=== PATIENT | female | born 1995 | race Caucasian/White ===

== ENCOUNTER 2017-04-14 17:45 | Emergency (ER) | payer MEDICAID ==
[~2017-04-14] VITALS: Ht 165.1 cm; Wt 115.6 kg
[2017-04-14 17:57] VITALS: BP 112/75
== END 2017-04-14 19:09 | disposition home or self-care (01) ==
LOC: ED 19:03
DX: L03.211 Cellulitis of face (principal); J02.8 Acute pharyngitis due to other specified organisms; B97.89 Other viral agents as the cause of diseases classified elsewhere
CPT/HCPCS: 99283

== ENCOUNTER 2017-06-06 17:42 | Emergency (ER) | payer MEDICAID ==
[~2017-06-06] VITALS: Ht 167.6 cm; Wt 118.5 kg
[2017-06-06 17:44] VITALS: BP 120/78
== END 2017-06-06 18:24 | disposition home or self-care (01) ==
LOC: ED 18:18
DX: L02.01 Cutaneous abscess of face (principal)
CPT/HCPCS: 99283

== ENCOUNTER 2017-06-13 04:46 | Emergency (ER) | payer MEDICAID ==
[~2017-06-13] VITALS: Ht 170.2 cm; Wt 116.3 kg
[2017-06-13 05:47] VITALS: BP 144/89
== END 2017-06-13 05:49 | disposition home or self-care (01) ==
LOC: ED 05:38
DX: Z00.00 Encounter for general adult medical examination without abnormal findings (principal); R45.851 Suicidal ideations
CPT/HCPCS: 99283

== ENCOUNTER 2020-07-04 17:50 | Inpatient (IN) | payer MEDICAID, OTHER ==
[~2020-07-04] VITALS: Ht 165.1 cm; Wt 109.4 kg
--- NOTE | 2020-07-04 18:06 | NUR ---
PT C/O RIGHT SIDE UPPER AND LOWER ABD PAIN, 01/31, THAT STARTED THIS AM. PT STATES SHE HAD A SIMILIAR EPISODE OVER A YEAR AGO AND WAS TOLD THAT SHE NEEDED TO HAVE HER GALL BLADDER REMOVED. PT DENIES, SOB, CP, OR DIARRHEA. PT DOES HAVE SOME NAUSEA BUT HAS NOT THROWN UP.
[2020-07-04] MEDS ORDERED: HYDROmorphone 1 MG/ML, 1ML INJ ONE ×4 (18:22→21:49)
[2020-07-04] MEDS ORDERED: ONDANSETRON 2MG/ML, 2ML ONE ×2 (18:22→19:14)
[2020-07-04] MEDS ORDERED: SODIUM CHLORIDE 0.9% 1,000 ML IV ONE (18:30)
[2020-07-04] MEDS ORDERED: ONDANSETRON 2MG/ML, 2ML IVPush ONE (18:30)
[2020-07-04 18:33] LABS: MICROSCOPIC INDICATED
--- NOTE | 2020-07-04 18:44 | NUR ---
ATTEMPTED PIV X 3 TIMES W/O SUCCESS. NOC RN TO TRY.
[2020-07-04 18:55] LABS: BASOPHILS % (AUTO) 1 % (0-1); EOSINOPHILS % (AUTO) 3 % (1-7); LYMPHOCYTES % (AUTO) 38 % (22-44); MEAN CORPUSCULAR HEMOGLOBIN 27.8 pg (27.0-34.8); MEAN PLATELET VOLUME 7.9 fL (7.4-10.4); MONOCYTES % (AUTO) 6 % (2-9); NEUTROPHILS % (AUTO) 53 % (42-75); PLATELET COUNT 362 x10^3/uL (130-400); RED BLOOD COUNT 4.69 x10^6/uL (3.82-5.3); RED CELL DISTRIBUTION WIDTH 13.3 % (9.6-15.2)
--- NOTE | 2020-07-04 18:55 | NUR ---
pt calm and comfortable, and report received on pt.
[2020-07-04 18:57] LABS: MD NO
--- NOTE | 2020-07-04 19:02 | NUR ---
difficult PIV attempts, and RN at bedside to start PIV with ultrasound assistance.
[2020-07-04 19:03] LABS: ALBUMIN 3.3 g/dL (3.4-5.0); ANION GAP 8 mmol/L (5-15); CALCIUM 8.8 mg/dL (8.5-10.1); CHLORIDE 108 mmol/L (98-107)
[2020-07-04 19:09] LABS: ALANINE AMINOTRANSFERASE 92 U/L (12-78); ALKALINE PHOSPHATASE 70 U/L (45-117); BILIRUBIN,TOTAL 0.4 mg/dL (0.2-1.0); CREATININE 0.64 mg/dL (0.55-1.02)
[2020-07-04] MEDS: HYDROmorphone 2 MG/ML, 1ML IVPush PRN ×2 (19:19→20:02)
--- NOTE | 2020-07-04 19:20 | NUR ---
piv to right AC 18g, started using ultrasound. pt tolerated well. NS 1 liter hung to run over 3 hours. meds given per emar, and pt tolerated well. resting comfortably. MD to bedside to update pt to course of care.
--- NOTE | 2020-07-04 20:02 | NUR ---
pt is back in high level pain, after first dose of pain meds. 2nd dose given at this time, and states some relief of pain. MD aware, and surgery to be consulted if pain not resolved. pts mom at bedside, and pt remains on cr monitor, and siderails up x2, and call light within reach.
--- NOTE | 2020-07-04 20:34 | NUR ---
pt asleep at this time and no complaints of pain at this time. remains on cr monitor, and MD aware, no pain at this time.
[2020-07-04] MEDS ORDERED: CEFOTETAN PMX 1GM/50ML 50 ML IVPB ONE (22:00)
[2020-07-04] MEDS ORDERED: HYDROmorphone 1 MG/ML, 1ML INJ IV ONE (22:00)
--- NOTE | 2020-07-04 22:03 | NUR ---
pt awake and c/o pain again. MD ordered more pain meds and administered, and pt verbalized relief of pain. on cr monitor, and warm blankets provided to pt. to be admitted and report to be called to floor.
--- NOTE | 2020-07-04 22:16 | NUR ---
report called to Kathleen RN and pt ready to be transferred to floor.
[2020-07-04] MEDS ORDERED: BISACODYL 10 MG SUPP PR PRN (23:00)
[2020-07-04] MEDS ORDERED: metroNIDAZOLE 500 MG TABLET PO ONE (23:00)
[2020-07-04] MEDS ORDERED: ONDANSETRON 2MG/ML, 2ML IVPush PRN (23:00)
[2020-07-04] MEDS ORDERED: NICOTINE 7 MG/24 HR PATCH.TD24 TD SCH (23:00)
[2020-07-04] MEDS: SODIUM CHLORIDE 0.9% 1,000 ML IV SCH (23:36)
[2020-07-05] MEDS: PIPERACILLIN/TAZO/PMX 3.375GM 50 ML IV SCH ×3 (00:50→11:59)
[2020-07-05] MEDS: HYDROmorphone 2 MG/ML, 1ML IVPush PRN ×6 (00:50→15:44)
[2020-07-05 01:27] VITALS: BP 140/80
[2020-07-05 05:27] LABS: BASOPHILS % (AUTO) 1 % (0-1); EOSINOPHILS % (AUTO) 3 % (1-7); LYMPHOCYTES % (AUTO) 29 % (22-44); MEAN CORPUSCULAR HEMOGLOBIN 27.7 pg (27.0-34.8); MEAN CORPUSCULAR HGB CONC 33.6 g/dL (32.4-35.8); MONOCYTES % (AUTO) 4 % (2-9); NEUTROPHILS % (AUTO) 63 % (42-75); PLATELET COUNT 361 x10^3/uL (130-400); RED BLOOD COUNT 4.83 x10^6/uL (3.82-5.3); RED CELL DISTRIBUTION WIDTH 13.5 % (9.6-15.2)
[2020-07-05 05:29] LABS: MD NO
[2020-07-05 05:41] LABS: ANION GAP 5 mmol/L (5-15); CALCIUM 9.5 mg/dL (8.5-10.1); CHLORIDE 107 mmol/L (98-107)
[2020-07-05 06:15] VITALS: BP 108/76
[2020-07-05] MEDS: MORPHINE SULFATE 4 MG/ML, 1ML IVPush PRN ×3 (06:26→14:16)
[2020-07-05] MEDS: SODIUM CHLORIDE 0.9% 1,000 ML IV SCH (09:00)
[2020-07-05 13:30] VITALS: BP 109/72
[2020-07-05] MEDS ORDERED: CHLORHEXIDINE 15 ML UDC MM ONE (14:30)
[2020-07-05] MEDS ORDERED: EPINEPHRINE 1 MG/ML, 1ML ONE (15:53)
[2020-07-05] MEDS ORDERED: BUPIVACAINE/PF 0.5% ONE (15:53)
== END 2020-07-05 17:20 | disposition left against medical advice (07) | DRG 445 ==
LOC: ED 18:20 → EDIP 22:46 → 4NE 23:04
PROVIDERS: ADMIT Family Medicine; ATTEND Hospitalist
DX: K80.00 Calculus of gallbladder with acute cholecystitis without obstruction (principal); E87.2 Acidosis; N39.0 Urinary tract infection, site not specified; Z68.41 Body mass index [BMI] 40.0-44.9, adult; A59.01 Trichomonal vulvovaginitis; Z20.822 Contact with and (suspected) exposure to COVID-19; E66.01 Morbid (severe) obesity due to excess calories; F12.90 Cannabis use, unspecified, uncomplicated; F17.210 Nicotine dependence, cigarettes, uncomplicated; F32.9 Major depressive disorder, single episode, unspecified; R74.01 Elevation of levels of liver transaminase levels; Z53.29 Procedure and treatment not carried out because of patient's decision for other reasons
CPT/HCPCS: 36415; 76700; 80048; 80053; 81001; 83690; 84703; 85025; 87086; 87635; 99285; G0378; J0171; J1170; J2405; J2543; J2270; J7030

== ENCOUNTER 2020-11-02 21:58 | Inpatient (IN) | payer MEDICAID ==
[~2020-11-02] VITALS: Ht 165.1 cm; Wt 116.9 kg
[2020-11-02] MEDS ORDERED: ONDANSETRON 2MG/ML, 2ML IVPush ONE (23:00)
[2020-11-02] MEDS: SODIUM CHLORIDE 0.9% 1,000ML IVBOLUS ONE ×2 (23:00→23:14)
[2020-11-02] MEDS ORDERED: MORPHINE SULFATE 4 MG/ML, 1ML ONE (23:00)
[2020-11-02] MEDS ORDERED: PROPOFOL 10 MG/ML, 20ML IVPush ONE (23:00)
[2020-11-02] MEDS ORDERED: SODIUM CHLORIDE FLUSH 10ML SYR IVF ONE (23:00)
[2020-11-02] MEDS ORDERED: ONDANSETRON 2MG/ML, 2ML ONE (23:00)
[2020-11-02] MEDS ORDERED: CLINDAMYCIN PMX 600MG/50ML 50 ML IVPB ONE (23:00)
[2020-11-02] MEDS ORDERED: CLINDAMYCIN PMX 600MG/50ML 50 ML ONE (23:01)
[2020-11-02 23:11] LABS: BASOPHILS % (AUTO) 0 % (0-1); EOSINOPHILS % (AUTO) 2 % (1-7); LYMPHOCYTES % (AUTO) 2 % (22-44); MEAN CORPUSCULAR HEMOGLOBIN 27.6 pg (27.0-34.8); MEAN PLATELET VOLUME 8.5 fL (7.4-10.4); MONOCYTES % (AUTO) 2 % (2-9); NEUTROPHILS % (AUTO) 94 % (42-75); PLATELET COUNT 367 x10^3/uL (130-400); RED BLOOD COUNT 4.68 x10^6/uL (3.82-5.3); RED CELL DISTRIBUTION WIDTH 13.9 % (9.6-15.2)
[2020-11-02 23:13] LABS: ALANINE AMINOTRANSFERASE 130 U/L (12-78); ALBUMIN 2.2 g/dL (3.4-5.0); ANION GAP 14 mmol/L (5-15); CALCIUM 7.9 mg/dL (8.5-10.1); CHLORIDE 95 mmol/L (98-107); CREATININE 2.77 mg/dL (0.55-1.02)
[2020-11-02 23:15] LABS: ALKALINE PHOSPHATASE 319 U/L (45-117); BILIRUBIN,TOTAL 3.6 mg/dL (0.2-1.0); TOTAL PROTEIN 6.9 g/dL (6.4-8.2)
[2020-11-02] MEDS: MORPHINE SULFATE 4 MG/ML, 1ML IV PRN ×2 (23:15→23:33)
[2020-11-02] MEDS ORDERED: VANCOMYCIN 2,000 MG in SODIUM CHLORIDE 0.9% 500 ML IV ONE (23:45)
[2020-11-03] MEDS ORDERED: AMPICILLIN/SULBACTAM 3 GM in SODIUM CHLORIDE 0.9% 100 ML IV ONE
[2020-11-03] MEDS ORDERED: VANCOMYCIN PER PHARMACY MC PRN
[2020-11-03] MEDS ORDERED: SODIUM CHLORIDE 0.9% 1,000ML IVBOLUS ONE
[2020-11-03] MEDS ORDERED: PROPOFOL 10 MG/ML, 20ML ONE ×2 (00:08→00:17)
--- NOTE | 2020-11-03 00:21 | NUR ---
CONSCIOUS SEDATION START. SEE PAPERWORK CHART FOR FURTHER INFO.
[2020-11-03] MEDS ORDERED: PROMETHAZINE 25 MG/ML, 1ML IM PRN (00:30)
[2020-11-03] MEDS ORDERED: hydrALAzine 20 MG/ML, 1ML IVPush PRN (00:30)
[2020-11-03] MEDS ORDERED: ACETAMINOPHEN 325 MG TABLET PO PRN (00:30)
[2020-11-03] MEDS ORDERED: KETOROLAC 30 MG/1 ML IV PRN (00:30)
[2020-11-03] MEDS ORDERED: SODIUM CHLORIDE 0.9% 1,000 ML IV SCH (00:30)
[2020-11-03] MEDS ORDERED: ONDANSETRON ODT 4 MG PO PRN (00:30)
[2020-11-03] MEDS ORDERED: ONDANSETRON 2MG/ML, 2ML IVPush PRN (00:30)
[2020-11-03] MEDS ORDERED: BISACODYL 10 MG SUPP PR PRN (00:30)
[2020-11-03] MEDS ORDERED: POLYETHYLENE GLYCOL 17 GM PACKET PO PRN (00:30)
[2020-11-03] MEDS ORDERED: DOCUSATE 100 MG CAPSULE PO PRN (00:30)
--- NOTE | 2020-11-03 01:01 | NUR ---
LAB BEDSIDE ATTEMPTING LACTIC DRAW. BP CUFF OFF FOR DRAW ATTEMPT.
[2020-11-03 01:57] VITALS: BP 105/63
[2020-11-03 02:20] LABS: HCT (SEDRATE) 38.1 % (34.6-47.8)
[2020-11-03] MEDS ORDERED: MORPHINE SULFATE 4 MG/ML, 1ML IVPush PRN ×2 (03:00→11:00)
[2020-11-03] MEDS: OXYcodone IR 5MG TABLET PO PRN ×4 (05:13→21:55)
[2020-11-03 05:28] LABS: MEAN CORPUSCULAR HEMOGLOBIN 28.1 pg (27.0-34.8); MEAN CORPUSCULAR HGB CONC 34.9 g/dL (32.4-35.8); MEAN PLATELET VOLUME 8.3 fL (7.4-10.4); PLATELET COUNT 279 x10^3/uL (130-400); RED BLOOD COUNT 3.92 x10^6/uL (3.82-5.3); RED CELL DISTRIBUTION WIDTH 13.6 % (9.6-15.2)
[2020-11-03 05:38] LABS: ALBUMIN 1.8 g/dL (3.4-5.0); ANION GAP 10 mmol/L (5-15); CALCIUM 7.2 mg/dL (8.5-10.1); CHLORIDE 101 mmol/L (98-107)
[2020-11-03 05:47] LABS: ALANINE AMINOTRANSFERASE 93 U/L (12-78); ALKALINE PHOSPHATASE 226 U/L (45-117); CHOL/HDL RATIO 7.8; CHOLESTEROL, TOTAL 70 mg/dL (140-239); HDL CHOL % 13 % (28-40); HDL CHOLESTEROL (DIRECT) 9 mg/dL (40-60); LDL CHOLESTEROL,CALCULATED 31 mg/dL (54-169); LDL/HDL RATIO 3.4 (0.5-3.0); TOTAL PROTEIN 5.5 g/dL (6.4-8.2); TRIGLYCERIDES 149 mg/dL (50-200); VLDL CHOLESTEROL 30 mg/dL (0-25)
[2020-11-03 06:04] LABS: BAND#(MANUAL) 1.96 x10^3/uL; BANDS%(MANUAL) 9 % (0-7); EOS#(MANUAL) 0.22 x10^3/uL (0.0-0.4); EOS% (MANUAL) 1 % (1-7); LYMPH#(MANUAL) 1.53 x10^3/uL (1-3.4); LYMPHS% (MANUAL) 7 % (22-44); MONOS#(MANUAL) 0.87 x10^3/uL (0.3-2.7); MONOS% (MANUAL) 4 % (2-9); SEG#(MANUAL) 17.22 x10^3/uL (1.8-6.8); SEGS% (MANUAL) 79 % (42-75)
[2020-11-03 06:05] LABS: <PLATELET ESTIMATE> ADEQUATE; <PLT MORPHOLOGY> NORMAL PLT MORPH; <RBC MORPHOLOGY> NORMAL
[2020-11-03 06:10] LABS: HCG UR SG 1.025 (1.003-1.030); MICROSCOPIC INDICATED
[2020-11-03 06:26] LABS: AMPHETAMINE SCREEN, URINE Positive (Negative); BARBITURATE SCREEN, URINE Negative (Negative); BENZODIAZEPINE SCREEN, URINE Negative (Negative); CANNABINOID SCREEN, URINE Negative (Negative); COCAINE SCREEN, URINE Negative (Negative); METHADONE SCREEN, URINE Negative (Negative); OPIATE SCREEN, URINE Positive (Negative)
[2020-11-03] MEDS ORDERED: CLINDAMYCIN PMX 600MG/50ML 50 ML IV SCH (07:00)
[2020-11-03 07:01] VITALS: BP 94/62
[2020-11-03] MEDS ORDERED: PHARMACY MAY ADJ FOR RENAL FX MC PRN (07:30)
[2020-11-03] MEDS ORDERED: SODIUM CHLORIDE 0.9%, 500ML IVBOLUS ONE (07:30)
[2020-11-03] MEDS: MAGNESIUM OXIDE 400 MG TABLET PO SCH ×2 (07:54→20:17)
[2020-11-03] MEDS: HEPARIN 5,000 UNITS/ML, 1ML SQ SCH ×2 (07:55→16:42)
[2020-11-03] MEDS ORDERED: MAGNESIUM SULFATE PMX 4GM/100M 100 ML IVPB ONE (08:00)
[2020-11-03] MEDS: CLINDAMYCIN PMX 900MG/50ML 50 ML IV SCH ×2 (08:31→18:44)
[2020-11-03 08:53] VITALS: BP 91/53
[2020-11-03] MEDS: AMPICILLIN/SULBACTAM 1,500 MG in SODIUM CHLORIDE 0.9% 50 ML IV SCH ×2 (09:27→20:17)
[2020-11-03] MEDS: SODIUM CHLORIDE 0.9% 1,000 ML IV SCH (09:33)
[2020-11-03] MEDS: LINEZOLID PMX 600MG/300ML 300 ML IV SCH ×2 (09:36→21:55)
[2020-11-03] MEDS: LACTOBACILLUS CHEW TABLET PO SCH ×3 (10:10→20:18)
[2020-11-03 14:12] LABS: ANION GAP 10 mmol/L (5-15); CALCIUM 7.1 mg/dL (8.5-10.1); CHLORIDE 100 mmol/L (98-107); CREATININE 2.37 mg/dL (0.55-1.02)
[2020-11-03 14:18] VITALS: BP 102/65
[2020-11-03] MEDS ORDERED: DIPHENHYDRAMINE 25 MG CAPSULE PO PRN (16:00)
[2020-11-03] MEDS ORDERED: DIPHENHYDRAMINE/ZINC CRM 2%, 30GM TP PRN (17:00)
[2020-11-03 19:23] VITALS: BP 125/71
[2020-11-04 00:13] VITALS: BP 109/72
[2020-11-04] MEDS: HEPARIN 5,000 UNITS/ML, 1ML SQ SCH ×2 (00:21→08:00)
[2020-11-04] MEDS: CLINDAMYCIN PMX 900MG/50ML 50 ML IV SCH (02:47)
[2020-11-04] MEDS: OXYcodone IR 5MG TABLET PO PRN (02:53)
[2020-11-04] MEDS: LACTOBACILLUS CHEW TABLET PO SCH ×3 (05:28→11:36)
[2020-11-04 06:17] LABS: BASOPHILS % (AUTO) 0 % (0-1); EOSINOPHILS % (AUTO) 8 % (1-7); LYMPHOCYTES % (AUTO) 10 % (22-44); MEAN CORPUSCULAR HEMOGLOBIN 28.1 pg (27.0-34.8); MEAN CORPUSCULAR HGB CONC 34.9 g/dL (32.4-35.8); MEAN PLATELET VOLUME 8.2 fL (7.4-10.4); MONOCYTES % (AUTO) 5 % (2-9); NEUTROPHILS % (AUTO) 77 % (42-75); PLATELET COUNT 257 x10^3/uL (130-400); RED BLOOD COUNT 3.45 x10^6/uL (3.82-5.3); RED CELL DISTRIBUTION WIDTH 13.7 % (9.6-15.2)
[2020-11-04 06:21] LABS: ALBUMIN 1.8 g/dL (3.4-5.0); ANION GAP 8 mmol/L (5-15); CALCIUM 7.7 mg/dL (8.5-10.1); CHLORIDE 106 mmol/L (98-107)
[2020-11-04 06:26] LABS: % IRON SATURATION 30 % (20-55); ALANINE AMINOTRANSFERASE 66 U/L (12-78); ALKALINE PHOSPHATASE 159 U/L (45-117); BILIRUBIN,TOTAL 0.8 mg/dL (0.2-1.0); CREATINE KINASE, TOTAL 42 U/L (26-192); CREATININE 1.91 mg/dL (0.55-1.02); IRON LEVEL 49 mcg/dL (50-170); TOTAL IRON BINDING CAPACITY 162 mcg/dL (250-450); TOTAL PROTEIN 5.6 g/dL (6.4-8.2)
[2020-11-04] MEDS ORDERED: POTASSIUM CHLORIDE 40 MEQ in SODIUM CHLORIDE 0.9% 500 ML IV ONE (07:00)
[2020-11-04 07:07] VITALS: BP_SYST 115; BP_SYST 125; BP_DIAS 64; BP_DIAS 78
[2020-11-04] MEDS: MAGNESIUM OXIDE 400 MG TABLET PO SCH (08:39)
[2020-11-04] MEDS: AMPICILLIN/SULBACTAM 1,500 MG in SODIUM CHLORIDE 0.9% 50 ML IV SCH (08:49)
[2020-11-04] MEDS: LINEZOLID PMX 600MG/300ML 300 ML IV SCH (09:50)
[2020-11-04] MEDS: SODIUM CHLORIDE 0.9% 1,000 ML IV SCH (11:33)
== END 2020-11-04 12:20 | disposition left against medical advice (07) | DRG 871 ==
LOC: ED 11-03 00:55 → EDIP 11-03 01:26 → 4NW 11-03 01:50 → 4EST 11-03 08:14
PROVIDERS: ADMIT Internal Medicine; ATTEND Internal Medicine
DX: A41.9 Sepsis, unspecified organism (principal); N17.0 Acute kidney failure with tubular necrosis; B17.9 Acute viral hepatitis, unspecified; E87.1 Hypo-osmolality and hyponatremia; E87.2 Acidosis; L02.414 Cutaneous abscess of left upper limb; L03.114 Cellulitis of left upper limb; N39.0 Urinary tract infection, site not specified; Z20.822 Contact with and (suspected) exposure to COVID-19; D63.8 Anemia in other chronic diseases classified elsewhere; E83.42 Hypomagnesemia; Z53.29 Procedure and treatment not carried out because of patient's decision for other reasons; E87.6 Hypokalemia; E88.09 Other disorders of plasma-protein metabolism, not elsewhere classified; F17.210 Nicotine dependence, cigarettes, uncomplicated; K72.90 Hepatic failure, unspecified without coma; K80.20 Calculus of gallbladder without cholecystitis without obstruction; R65.20 Severe sepsis without septic shock; T63.301A Toxic effect of unspecified spider venom, accidental (unintentional), initial encounter; Y92.89 Other specified places as the place of occurrence of the external cause; Z91.19 Patient's noncompliance with other medical treatment and regimen
CPT/HCPCS: 36415; 76700; 80048; 80053; 80061; 80074; 80307; 81001; 81025; 82550; 83036; 83540; 83550; 83605; 83735; 84100; 84145; 84443; 84703; 85025; 85651; 86140; 87040; 87070; 87077; 87086; 87106; 87186; 87205; 87521; 87635; 96361; 96374; G0378; J1644; J2020; J2405; J3480; J0295; J2270; J3475; J7030; J7040; Q0163